=== PATIENT | male | born 1960 | race Caucasian/White ===

== ENCOUNTER 2017-02-10 13:51 | Emergency (ER) | payer MEDICAID ==
--- NOTE | 2017-02-10 13:58 | EDPHY ---
H & P Source: Patient Exam Limitations: No limitations Time Seen by Provider: 02/10/17 13:57 HPI/ROS: CHIEF COMPLAINT: Brought to emergency department on M1 psychiatric hold HISTORY OF PRESENT ILLNESS: The patient has a history of an unspecified psychiatric disorder and reportedly is a resident at an outpatient treatment facility. The patient reportedly became combative with staff. The police were summoned. The patient reportedly resisted transfer to the hospital. The patient did not receive any chemical restraint. In the emergency department patient is unwilling to provide any specific history. REVIEW OF SYSTEMS: A comprehensive 10 point review of systems is otherwise negative aside from elements mentioned in the history of present illness. (Jacinto Cisneros) - Physical Exam Exam: General Appearance: Obese male, disheveled, no acute distress Eyes: Pupils equal and round no pallor or injection ENT, Mouth: Mucous membranes moist Respiratory: There are no retractions, lungs are clear to auscultation Cardiovascular: Regular rate and rhythm Gastrointestinal: Abdomen is soft and nontender, no masses, bowel sounds normal Neurological: Grossly normal motor function noted all 4 extremities Skin: Superficial abrasions Musculoskeletal: Neck is supple nontender Extremities: symmetrical, full range of motion Psychiatric: Nonverbal, uncooperative (Jacinto Cisneros) Constitutional: Initial Vital Signs Temperature (C) 36.8 C 02/10/17 14:31 Heart Rate 114 H 02/10/17 14:31 Respiratory Rate 18 02/10/17 14:31 Blood Pressure 145/98 H 02/10/17 14:31 O2 Sat (%) 95 02/10/17 14:31 O2 Delivery Mode Room Air Allergies/Adverse Reactions: No Known Allergies Allergy (Unverified 06/18/12 15:21) Home Medications: Medication Instructions Recorded Risperdal Consta 12.5mg (*) 02/11/17 Medical Decision Making ED Course/Re-evaluation: The patient received IM Zyprexa for catatonia and unwillingness to participate in the evaluation. Screening laboratory studies have been sent. The patient was cooperative in receiving his Zyprexa. Patient has been medically cleared for psychiatric evaluation which is pending as of 8:20 p.m.. The patient will be turned over to Dr. Coulter at shift change. (Jacinto Cisneros) 6:50 a.m.- The patient has remained stable throughout my shift. He is medically clear and continues to await psychiatric eval which will happen later this morning. He will be signed out to the oncoming provider Dr. Gutierrez pending evaluation. (María Swartz) 1pm-Seen by mental health and felt appropriate for ATU placement. (Ana Gutierrez) This patient was turned over to me at shift change. This patient has finally been placed at [facility]. He is gravely disabled and I filled out the appropriate transfer paperwork and have an accepting physician and is accepting facility. (Ian Esposito) Differential Diagnosis: Differential diagnosis considered includes psychosis, schizophrenia, suicidal ideation, catatonia (Jacinto Cisneros) - Data Points Laboratory Results: Laboratory Results 02/10/17 14:15 02/10/17 14:15 Medications Given: Discontinued Medications Nicotine (Nicoderm Cq) 14 mg TD EDNOW ONE Stop: 02/11/17 10:13 Last Admin: 02/11/17 10:16 Dose: Not Given Nicotine (Nicoderm Cq) 21 mg TD EDNOW ONE Stop: 02/11/17 10:18 Last Admin: 02/11/17 10:18 Dose: 21 mg Olanzapine (Zyprexa Zydis) 10 mg PO EDNOW ONE Stop: 02/10/17 14:33 Last Admin: 02/10/17 14:51 Dose: Not Given Olanzapine (Zyprexa Im Injection) 10 mg IM EDNOW ONE Stop: 02/10/17 15:01 Last Admin: 02/10/17 15:01 Dose: 10 mg Departure - Departure Disposition: Other Psych, Not Julissa Clinical Impression: Suicidal ideation Condition: Fair Referrals: Patient,NotPresent [Unknown] - As per Instructions
[2017-02-10 14:37] LABS: % IMMATURE GRANULYOCYTES 0.4 % (0.0-1.1); ABSOLUTE IMMATURE GRANULOCYTES 0.04 10^3/uL (0.00-0.10); ADD DIFF? NO; ADD MORPH? NO; ADD SCAN? NO; ATYPICAL LYMPHOCYTE FLAG 10 (0-99); FRAGMENT RBC FLAG 0 (0-99); HEMATOCRIT 51.7 % (40.0-51.0); HEMOGLOBIN 17.9 g/dL (13.7-17.5); LEFT SHIFT FLG 0 (0-99); LIPEMIA HEMOLYSIS FLAG 90 (0-99); MEAN CELL HEMOGLOBIN 31.1 pg (27.9-34.1); MEAN CELL HEMOGLOBIN CONCENTR. 34.6 g/dL (32.4-36.7); MEAN CELL VOLUME 89.8 fL (81.5-99.8); MEAN PLATELET VOLUME 8.9 fL (8.7-11.7); PLATELET CLUMPS FLAG 0 (0-99); PLATELET COUNT 155 10^3/uL (150-400); RED BLOOD CELL COUNT 5.76 10^6/uL (4.40-6.38); RED CELL DISTRIBUTION WIDTH 13.7 % (11.5-15.2)
[2017-02-10] MEDS: OLANZapine DISINTEGR 10 MG TAB PO ONE ×2 (14:49→14:51)
[2017-02-10 14:50] LABS: ANION GAP 16 mEq/L (8-16); CARBON DIOXIDE 16 mEq/l (22-31); CHLORIDE 108 mEq/L (97-110); CREATININE 0.8 mg/dL (0.7-1.3); GLOMERULAR FILTRATION RATE > 60; GLUCOSE 212 mg/dL (70-100); POTASSIUM 3.8 mEq/L (3.5-5.2); SODIUM 140 mEq/L (134-144)
[2017-02-10] MEDS ORDERED: OLANZapine 10 MG/2 ML VIAL ONE (14:53)
[2017-02-10] MEDS ORDERED: OLANZapine 10 MG/2 ML VIAL IM ONE (15:00)
[2017-02-10 18:33] LABS: ETHANOL SERUM < 10 mg/dL (0-10)
[2017-02-11] MEDS ORDERED: NICOTINE 14 MG/24 HR PATCH TD ONE (10:12)
[2017-02-11] MEDS ORDERED: NICOTINE 21 MG/24 HR PATCH TD ONE ×2 (10:15→10:17)
[2017-02-11 21:42] VITALS: BP 135/71; PULSE 68; RESP 16; TEMP 98.2; O2SAT 96
== END 2017-02-11 21:40 ==
LOC: EDUNIT#
DX: R45.851 Suicidal ideations (principal)
CPT/HCPCS: 80305; G0480